=== PATIENT | female | born 2000 | race Caucasian/White ===

== ENCOUNTER 2022-08-29 07:37 | Outpatient (CLI) | payer OTHER, SELFPAY ==
[2022-08-29 14:36] LABS: Chlamydia DNA Amplified* NOT DETECTED (No Detected); GC DNA Amplified* NOT DETECTED (No Detected)
== END 2022-08-29 07:38 | disposition home or self-care (01) ==
PROVIDERS: Visit Provider Physician Assistant Medical
DX: Z11.3 Encounter for screening for infections with a predominantly sexual mode of transmission (principal); Z30.41 Encounter for surveillance of contraceptive pills
CPT/HCPCS: 80053; 80061; 84443; 87491; 87591

== ENCOUNTER 2023-10-28 13:50 | Outpatient (CLI) | payer OTHER, SELFPAY | END 2023-10-28 13:51 | disposition home or self-care (01) | LOC: NFLDREF 10-30 15:32 | PROVIDERS: PCP Physician Assistant Medical; Referring Provider Physician Assistant Medical; Visit Provider Physician Assistant Medical | DX: Z30.41 Encounter for surveillance of contraceptive pills (principal); Z11.3 Encounter for screening for infections with a predominantly sexual mode of transmission | CPT/HCPCS: 87491; 87591 ==

== ENCOUNTER 2024-07-29 08:50 | Outpatient (CLI) | payer BC, SELFPAY ==
[2024-07-29 15:23] LABS: Chlamydia DNA Amplified* NOT DETECTED (No Detected); GC DNA Amplified* NOT DETECTED (No Detected)
== END 2024-07-29 08:51 | disposition home or self-care (01) ==
PROVIDERS: PCP Physician Assistant Medical; Visit Provider Physician Assistant Medical
DX: Z12.4 Encounter for screening for malignant neoplasm of cervix (principal); Z11.3 Encounter for screening for infections with a predominantly sexual mode of transmission
CPT/HCPCS: 87491; 87591; 87624; 87625; 88141; 88142